=== PATIENT | male | born 1960 | race Caucasian/White ===

== ENCOUNTER 2018-02-09 14:54 | Outpatient (CLI) | payer BC ==
--- NOTE | 2018-02-09 15:22 | RAD ---
TWO VIEWS RIGHT ELBOW: Comparison: None. History: Knot that comes and goes in the right elbow. Pain. FINDINGS: Two views of the right elbow shows no evidence of acute fracture or dislocation. No degenerative ferguson ges are seen. No elbow effusion is present. IMPRESSION: Unremarkable exam. POS: [facility]
--- NOTE | 2018-02-09 15:57 | RAD ---
CERVICAL SPINE FIVE VIEWS INCLUDING FLEXION AND EXTENSION LATERAL VIEWS: History: 57-year-old male with history of left neck pain for two months without known injury. FINDINGS: C6-7, C7, and C7-T1 and T1 are obscured on the lateral views. Disc osteophytosis changes are noted, m ost marked at C5-6 and C6-7. No significant abnormal translation involving the visualized cervical sp ine disc spaces between flexion and extension. Portions of C1 and the tip of the odontoid are partial ly obscured on the AP open mouth view. IMPRESSION: C6-7, C7 and C7-T1 are obscured on the lateral views. No abnormal translation between flexion and ext ension involving the visualized cervical spine discs. Spondylosis, particularly at C5-6 and C6-7. POS: [facility]
== END 2018-02-09 14:55 | disposition home or self-care (01) ==
LOC: SCSRAD 14:54
PROVIDERS: ATTEND Chiropractor
DX: M54.2 Cervicalgia (principal); M71.321 Other bursal cyst, right elbow; M47.892 Other spondylosis, cervical region
CPT/HCPCS: 72050

== ENCOUNTER 2022-03-04 09:40 | Outpatient (CLI) | payer BC ==
[2022-03-04 13:17] LABS: #Basophils 0.1 thou/uL (0.0-0.2); #Eosinphils 0.1 thou/uL (0.0-0.7); #Lymphocytes 2.1 thou/uL (1.20-3.40); #Monocytes 0.5 thou/uL (0.11-0.59); #Neutrophils 3.6 thou/uL (1.40-6.50); %Basophils 0.9 % (0.0-1.0); %Eosinophils 1.3 % (0.0-10.0); %Lymphocytes 33.2 % (21.0-51.0); %Monocytes 7.8 % (0.0-10.0); %Neutrophils 56.9 % (42.0-75.0); Hemoglobin 14.9 g/dL (14.0-18.0); Mean Corpuscular HGB CONC 32.2 g/dL (32.0-36.0); Mean Corpuscular Hemoglobin 31.1 pg (27.0-31.0); Mean Corpuscular Volume 96.7 fL (78.0-98.0); Mean Platelet Volume 7.9 fL (7.4-10.4); Platelet Count 242 thou/uL (130-400); RBC Distribution Width 12.4 % (11.5-14.5); Red Blood Cell (RBC) Count 4.77 mill/uL (4.70-6.10); White Blood Cell (WBC) Count 6.3 thou/uL (4.8-10.8)
[2022-03-04 13:18] LABS: ALT (SGPT) 17 U/L (8-55); AST (SGOT) 20 U/L (5-34); Albumin 4.4 g/dL (3.5-5.0); Alkaline Phosphatase 77 U/L (40-110); Anion Gap 12 mmol/L (10-20); BUN (Urea Nitrogen) 14 mg/dL (8.4-25.7); Bilirubin, Total 0.5 mg/dL (0.2-1.2); Calc. Creatinine Clearance 0 mL/min (70-130); Calcium 9.7 mg/dL (7.8-10.44); Carbon Dioxide 28 mmol/L (22-29); Cardiac Risk 3.5 (Less than 4.5); Chloride 105 mmol/L (98-107); Cholesterol 215 mg/dl (< 200 Desired); Estimated GFR 88; Globulin 2.8 g/dL (2.4-3.5); Glucose 80 mg/dL (70-105); HDL Cholesterol 61 mg/dL (>60 Neg Risk); LDL Cholesterol, Calculated 136 mg/dL; Potassium 4.6 mmol/L (3.5-5.1); Protein, Total 7.2 g/dL (6.0-8.3); Sodium 140 mmol/L (136-145); Triglycerides 90 mg/dL (Less than 150)
[2022-03-04 13:37] LABS: Thyroid Stimulating Hormone 1.5085 uIU/mL (0.35-4.94); Vitamin D, 25 Hydroxy 47.8 ng/ml (> 30.0)
[2022-03-04 14:00] LABS: Bacteria/HPF None Seen HPF (None Seen); Bilirubin Negative (Negative); Blood, Urine Trace (Negative); Clarity Clear (Clear); Glucose, Urine (Dipstick) Normal (Negative); Ketone, Urine Negative (Negative); Leukocyte Negative Leu/uL (Negative); Nitrite Negative (Negative); Protein, Urine (Dipstick) Negative (Neg-Trace); RBC/HPF 0-3 HPF (0-3); Specific Gravity, Urine 1.019 (1.002-1.036); Squamous Epithelial None Seen HPF (0-3); Urobilinogen Normal mg/dL (Less than 2); WBC/HPF 0-3 HPF (0-3); pH, Urine 5.5 (5.0-9.0)
[2022-03-04 16:39] LABS: Hemoglobin A1c 5.1 % (4.0-6.0)
== END 2022-03-04 09:41 | disposition home or self-care (01) ==
LOC: SCSRAD 09:40
PROVIDERS: ATTEND Family Medicine Sports Medicine
DX: Z00.00 Encounter for general adult medical examination without abnormal findings (principal); M25.511 Pain in right shoulder; M54.50 Low back pain, unspecified; M47.816 Spondylosis without myelopathy or radiculopathy, lumbar region; R53.83 Other fatigue; E66.8 Other obesity
CPT/HCPCS: 72100; 80053; 80061; 81001; 82306; 83036; 84403; 84443; 85025